=== PATIENT | male | born 1995 | race Caucasian/White ===

== ENCOUNTER 2018-01-14 18:58 | Emergency (ER) | payer BC ==
[~2018-01-14] VITALS: Ht 177.8 cm; Wt 84.2 kg
[~2018-01-14 18:58] MED LIST: ACET300T3 PO
[2018-01-14 19:01] VITALS: TEMP 36.7; Ht 177.8 cm; Wt 84.2 kg
[2018-01-14] MEDS ORDERED: LIDOCAINE 1% BUFFERED INJ 20 ML VIAL INFIL STA (19:13)
[2018-01-14] MEDS ORDERED: CEPHALEXIN 500MG HOME PACK 1 EA BTL PO STA (20:30)
[2018-01-14] MEDS ORDERED: CEPH500C PO (20:40)
--- NOTE | 2018-01-14 20:41 | EMERGENCY ROOM VISIT NOTE ---
ED Visit Note First contact with patient: 19:04 Chief Complaint: "Cut hand". History of Present Illness: This patient is a 22-year-old male who presents to the Emergency Department via private vehicle for evaluation of their left palm laceration. Patient sustained the laceration while preparing dinner, when he accidentally stabbed the palmar aspect of his left hand. They report a minimal amount of bleeding initially. They deny any numbness or tingling into the distal extremity. They report do report some decreased range of motion of the affected digit. They have tried nothing for the pain. Patient rates his current discomfort as a 8/10. Patient's Tetanus status is believed to be currently up-to -date. Medications: As noted below Allergies: Azithromycin PMH: No pertinent SHx: Patient lives locally ROS: All pertinent positive and negative review of systems are appropriately documented in the History of Present Illness. Physical Exam: VITAL SIGNS - Vital signs and nursing notes were reviewed. Stable. Afebrile. GENERAL -22-year-old male appearing his stated age who is in no acute distress. Communicates well with provider and answers questions appropriately. SKIN - There is a 1 cm long laceration noted palmar aspect of the patient's left hand just proximal to the left fourth digit. The edges gape apart with traction. No foreign bodies appreciated. Upon further examination there are no deep structures including vessel, tendon, or bony structures appreciated. There is no active bleeding noted. MUSCULOSKELETAL - Laceration as described above. Full range of motion noted. Unfortunately, the patient does have strength deficit with flexion of the right fourth digit against resistance. Concern raised for tendinous injury. NEUROLOGIC - Spinothalamic tract was found to be intact with ability to discriminate sharp versus dull sensation. No sensory defects of the dorsal column were appreciated utilizing light touch for evaluation. VASCULAR - Capillary refill was brisk. ED Course: Patient was seen and evaluated by myself. Risks and benefits of performing primary wound closure versus no repair were discussed with the patient who verbalizes understanding. Verbal consent was obtained prior to performing the procedure. 3 cc of 1% buffered lidocaine was used to perform local anesthetization of the palmar laceration. The wound was cleansed and prepped in the typical sterile fashion utilizing normal saline and Betadine. The wound was sterilely draped. Once proper anesthetization was established, the wound was further examined and demonstrated no deep involvement that was appreciable to my inspection however it appears that the wound tracks deeper than visibly appreciated therefore validating concern for tendinous injury. The wound was copiously irrigated with normal saline and Betadine. The wound was closed using 2 simple, 4-0 nylon sutures with the wound edges being well approximated. Patient tolerated the procedure well. No complications were met. The wound was cleansed and dressed with a Bacitracin dressing and clamshell to provide flexion persistence of the fourth and fifth digits. I discussed the case with the on-call orthopedic surgeon, Dr. Charlton. Patient is to call his office first thing tomorrow to schedule follow-up. Patient will be on Keflex for infection prophylaxis. Patient educated on worrisome symptoms for return visit to the Emergency Department. Patient discharged to home in good condition. In the evaluation and treatment of this patient, the following differential diagnoses were considered: Finger Fracture, Finger Dislocation, tendinous injury, laceration, finger Sprain , Finger Contusion, Jersey Finger, or Mallet Finger. Current/Historical Medications Scheduled Cephalexin Monohydrate (Keflex), 500 MG PO QID Allergies Coded Allergies: Azithromycin (Unverified Allergy, Unknown, 01/14/18) Vital Signs Date Time Temp Pulse Resp B/P (MAP) Pulse Ox O2 Delivery O2 Flow Rate FiO2 01/14/18 21:26 70 18 133/70 99 01/14/18 19:01 36.7 65 16 129/97 100 Room Air Medications Administered Medications (Trade) Dose Ordered Sig/Albino Route Start Time Stop Time Status Last Admin Dose Admin Cephalexin Monohydrate (Keflex 500MG Home Pack) 1 homepack NOW STAT PO 01/14/18 20:30 01/14/18 20:31 DC 01/14/18 21:03 1 HOMEPACK Departure Information Impression Primary Impression: Laceration Dispostion Home / Self-Care Condition GOOD Prescriptions Cephalexin Monohydrate (Keflex) 500 Mg Cap 500 MG PO QID for 6 Days, #24 CAP Prov: Jhonny Keys PA-C 01/14/18 Referrals Linsey FletcherDRamon (PCP) Deangelo Charlton M.D. Patient Instructions [facility] Additional Instructions Discharge Instructions: You have received 2 sutures on your hand. These sutures are NOT dissolvable and WILL need to be removed by a health care provider in 12 days (Unless directed by your orthopedic doctor, Dr. Charlton). You can return to the Emergency Department or contact your Primary Care Provider to have the sutures removed. Keflex 500 mg every 6 hours to prevent infection. Remainder sent to your pharmacy. Please wear the splint for comfort until you see orthopedic Proper wound care is essential for adequate wound healing and infection prevention. You can shower and clean the wound with soap and water. Do not scour over the wound, pat dry with a towel. Do not submerse the wound (i.e. bathe or dish wash) until the sutures have been removed. You can use an antibiotic ointment with a dressing over the wound for the next 3-4 days. After this time you may leave the wound dry and open to the air. If crust develops over the wound you can use a Q-tip to apply a 1:1 peroxide:water solution to clean the wound. Look for signs of infection of the wound including: increased pain, swelling, foul discharge, streaking, or increased temperature. If any of these are noticed you should return to the Emergency Department for further assessment and treatment. As with any laceration you may have received nerve damage to the surrounding tissues. This damage may or may not be permanent. You should keep the area covered with sunscreen for the first 6 months to 1 year when at risk for exposure to help minimize scarring. You can also use scar reducing creams or Vitamin E oil to help minimize scarring. For pain control, you can use the following plrr-pzh-nyzyhav medicines (if >12 yo): - Regular strength (325mg/tab) Tylenol (acetaminophen) 2 tabs every 4-6 hours as needed. Do not exceed 12 tablets in a 24 hour period. Avoid taking more than 3 grams (3000 mg) of Tylenol per day. This includes any other sources of acetaminophen you may take on a regular basis. - Regular strength (200 mg/tab) Advil (ibuprofen) 1-2 tabs every 4-6 hours as needed. Do not exceed a dose of 3200 mg per day. Return to the emergency department if your symptoms worsen despite treatment course outlined above.
[2018-01-14 21:26] VITALS: BP 133/70; PULSE 70; O2SAT 99
[2018-01-16] MEDS ORDERED: HYDR-5688 PO (14:28)
== END 2018-01-14 21:02 | disposition home or self-care (01) ==
LOC: C.EDB 18:59 → C.EDD 21:02
DX: S61.412A Laceration without foreign body of left hand, initial encounter (principal); Z88.1 Allergy status to other antibiotic agents; W26.9XXA Contact with unspecified sharp object(s), initial encounter

== ENCOUNTER → 2018-01-15 | Outpatient (CLI) | payer BC ==
[~2018-01-15] MED LIST changes: -ACET300T3 PO; +CEPH500C PO; +HYDR-5688 PO
== END | disposition home or self-care (01) ==
LOC: C.RDSM 11:15
PROVIDERS: ATTEND Physical Medicine & Rehabilitation Sports Medicine
DX: M79.642 Pain in left hand (principal)

== ENCOUNTER → 2018-01-16 | Day surgery (SDC) | payer BC ==
[2018-01-15 16:08] VITALS: Ht 180.3 cm; Wt 86.4 kg
[~2018-01-16] VITALS: Ht 180.3 cm; Wt 86.4 kg
[~2018-01-16] MED LIST changes: +ATROPINE SULFATE 0.1 MG/ML 5ML SYR IV PRN; +BUPIVACAINE 0.5 % 5 MG/1 ML PF 10ML VIAL ONE; +CEFAZOLIN 2000MG IV PUSH 15 ML IV SCH; +DEXAMETHASONE SOD INJ 4 MG/ML VIAL ONE; +EpHEDrine SULFATE INJ 50 MG/ML AMP IV PRN; +FENTANYL CITRATE INJ 50 MCG/1 ML 2 ML VIAL IV PRN; +FENTANYL CITRATE INJ 50 MCG/1 ML 2 ML VIAL ONE; +HYDROmorphone INJ 1 MG/ML SYR IV PRN; +KETOROLAC TROMETHAMINE 30 MG/ML VIAL ONE; +LACTATED RINGER'S 1000ML 1,000 ML IV SCH; +LIDOCAINE HCL 1% 20 ML VIAL ONE; +LIDOCAINE HCL 2% 2 ML VIAL (20MG/ML) ONE; +MIDAZOLAM HCL 1 MG/ML 2ML VIAL ONE; +MoRPHine SULFATE 2 MG/ML CARP IV PRN; +MoRPHine SULFATE 4 MG/ML 1 ML CARP\\VIAL IV PRN; +ONDANSETRON INJ 2 MG/ML 2 ML VIAL IV PRN; +ONDANSETRON INJ 2 MG/ML 2 ML VIAL ONE; +OXYCODONE/ACETAMINOPHEN 5-325 TAB PO PRN; +PHENYLEPHRINE 100MCG/ML 5ML SYR IV PRN; +PROMETHAZINE HCL INJ 12.5 MG in SODIUM CHLORIDE 0.9% 50ML 50 ML IV PRN; +PROPOFOL IV EMULSION 10 MG/ML 20 ML VIAL ONE; +SODIUM CHLORIDE 0.9% 1000ML 1,000 ML IV SCH
--- NOTE | 2018-01-16 12:41 | History & Physical Bridge Note ---
H&P Re-Evaluation Bridge Note: I have examined the patient, reviewed the History & Physical and in the interval since the performance of the History & Physical I have noted the following changes of clinical significance: No changes noted
--- NOTE | 2018-01-16 14:04 | [facility] Post Operative Brief Note ---
Immediate Operative Summary Operative Date Jan 16, 2018. Pre-Operative Diagnosis Left ring finger flexor tendon laceration, zonne 3 Post-Operative Diagnosis Same as pre-op Procedure(s) Performed Left Hand Exploration And Left Ring Finger Tendon Repair Surgeon Cardiovascular Surgical Tech Surgeon(s) June SALAMANCA Estimated Blood Loss 20ML Findings Consistent with Post-Op Diagnosis Specimens None Drains None Anesthesia Type General Complication(s) none Disposition Accompanied Pt To Recover: no Disposition: Recovery Room / PACU
--- NOTE | 2018-01-16 14:32 | Discharge Instructions-SurgCtr ---
Discharge Instructions Date of Service Jan 16, 2018. Visit Reason for Visit: Left Ring Finger Flexor Tendon Laceration Discharge Discharge Diagnosis / Problem: Left ring finger flexor tendon laceration Discharge Goals Goal(s): Decrease discomfort, Improve function, Increase independence Activity Recommendations Activity Limitations: per Instructions/Follow-up section Weightbearing Status: Left non-weightbearing (left hand) Anesthesia . Post Anesthesia Instructions: If you have had General Anesthesia or IV Sedation: * Do not drive today. * Resume driving when surgeon permits. * Do not make important decisions or sign legal documents today. * Call surgeon for: 1. Temperature elevations greater than 101 degrees F. 2. Uncontrollable pain. 3. Excessive bleeding. 4. Persistent nausea and vomiting. 5. Medication intolerance (nausea, vomiting or rash). * For nausea and vomiting use only clear liquids such as: tea, soda, bouillon until nausea subsides, then gradually increase diet as tolerated. * If you have any concerns or questions, call your surgeon's office. If physician is unavailable and it is an emergency, call 911 or go to the nearest emergency room. . Instructions / Follow-Up Instructions / Follow-Up The following are instructions to follow after minor hand surgery. ACTIVITY RECOMMENDATIONS: * Minimize activity until your first visit after surgery. * No excessive walking, jogging, sports or laboring. * Return to activity is individualized. Most patients are able to return to everyday activities within 2 weeks. * Return to sports or intensive labor usually occurs at 1-2 months. * DRIVING: Driving may be resumed when you feel you have adequate pain control and use of the hand. * BATHING: You may shower or sponge-bathe immediately after surgery. The dressing will need to be covered with a plastic bag or plastic wrap until the dressing is changed on the fourth or fifth day after surgery. Once the dressing has been changed on the fourth or fifth day after surgery, you may shower and get the incision wet. * Wash with regular soap and water. * Do not bathe (submerge the incision), soak, swim or use a hot tub until the incision is completely healed over with normal skin and the doctor has given the OK to proceed. * There is no need to apply any ointments, powders or salves to your incision. * Do not apply alcohol or hydrogen peroxide directly to the incision. Diluted peroxide (50:50 mixture with sterile saline) may be used to clean dried blood from around the incision area. WORK/SCHOOL: * You may return to sedentary work or school when you are feeling comfortable. This is usually 3-7 days after surgery. * Expect increased discomfort with increased activity. Continue to elevate and ice the hand as much as possible. DIET: * Resume previous diet. MEDICATIONS: * You will have a prescription for pain medication and an anti-inflammatory medication after surgery. Use the pain pills for severe pain and the anti-inflammatory for less severe pain. * Once the pain pills have run out, try to use the anti-inflammatory. If this is not effective then contact the office for assistance. * The pain medication may cause nausea, constipation and sleepiness. You should see how they affect you before driving or similar activity. * The anti-inflammatory may cause stomach upset and bleeding. If this occurs, let your doctor know immediately . * Some patients may need blood clot prevention. This can be done with either a pill or a simple shot. Your doctor will advise you on when to begin these medications and how to take them. * Do not take aspirin or other anti-inflammatory products (i.e. Advil or Aleve ) if taking blood thinner medication. * Take a stool softener like Colace or a stimulant like Senokot to prevent constipation. SPECIAL CARE INSTRUCTIONS: ICE: * Do not apply ice directly to the skin. * Use a thin dressing or stockinet between the skin and ice bag. The dressing in place after surgery will suffice. * Apply ice for 20-30 minutes and repeat every 2-4 hours. This is especially important for the first 3-7 days after surgery. * Once the pain improves, use ice as needed. ELEVATION: * Keep your hand elevated at or above the level of your heart as much as possible. * Expect some increased discomfort and swelling if you allow your hand to hang down for any length of time. DRESSING: * Your dressing will be changed 4-5 days after surgery by the physical therapist or physician's assistant bookkeeper. Leave your dressing intact until this time. * Keep splint on at all times until your physical therapy appointment. * Always wash your hands prior to touching the incision area. * Once the stitches are removed, you may leave the wound open to air or cover with a thin bandage. * There is no need to apply any ointments, powders or salves to your incision. * Expect some bloody drainage for the first few days after surgery. * Leave the tape strips in place (if present) for 5-7 days. * The initial dressing after surgery may become soaked with blood or fluid which is normal. You may reinforce your dressing with clean, dry gauze as needed. BRACE: * Bracing may be needed after your surgery. This will happen at your physical therapy appointment if necessary. THERAPY: * Physical therapy may be prescribed after your surgery. * For carpal tunnel and trigger digit surgery you may begin moving your fingers and wrist immediately after surgery as tolerated. * Be careful to not overuse. * Once the sutures are removed, further range of motion exercises can be performed. * Hand incisions may be very sensitive for a few months after surgery so avoid excessive pressure on the incision. If necessary, use a padded weightlifters' glove. * You may massage the incision with skin cream to make it less sensitive and reduce scarring. * Hand strength usually returns with normal use. * If needed, squeezing a soft sponge or Play-dough may help. * Your doctor will recommend physical therapy if necessary. PROBLEMS/QUESTIONS: * If you have any problems such as severe pain, numbness, tingling or high fevers or if you have any questions, please contact the office at [phone]. * It is not uncommon to have some numbness and tingling after the surgery especially if you have had a nerve block done. This should gradually improve over the first 1- 2 days. If this persists longer or worsens then contact the office. FOLLOW UP VISIT: * If not already scheduled, please call the office at to schedule follow-up appointments for approximately 10 days, 6 weeks and 3 months after surgery. * You have a scheduled physical therapy appointment on Saturday. * You have a follow up scheduled with Dr. Charlton on 01/29/18 at 1:15 pm Diet Recommendations Home Diet: no limitations, resume previous diet Procedures Procedures Performed: Left Hand Exploration And Left Ring Finger Tendon Repair Pending Studies Studies pending at discharge: no Medical Emergencies . Who to Call and When: Medical Emergencies: If at any time you feel your situation is an emergency, please call 911 immediately. . Non-Emergent Contact Non-Emergency issues call your: Surgeon Call Non-Emergent contact if: temperature is above 101, your pain is not controlled, your pain is worsening, your pain is unusual for you, your pain is concerning you, wound has increased drainage, wound has increased redness, wound has increased pain, you have any medication questions . . "Provider Documentation" section prepared by Roz Alves. . [place] Drug Monitoring Program Search Results: patient reviewed within database, no issues identified
--- NOTE | 2018-01-16 14:36 | [facility] Operative Report ---
Operative Report Operative Date Jan 16, 2018. Pre-Operative Diagnosis Left ring finger flexor tendon laceration, zonne 3 Post-Operative Diagnosis Same as pre-op Procedure(s) Performed Left Hand Exploration And Left Ring Finger Tendon Repair Surgeon Chief Science Officer Surgeon(s) June SALAMANCA Estimated Blood Loss 20ML Findings left ring finger flexor tendon rupture Specimens None Drains None Anesthesia Type General Complication(s) none Disposition no Recovery Room / PACU Indications Patient is s/p stabbing his left hand while cooking on Saturday. He was seen in the ED, concern for flexor tendon. Referred to orthopaedics. X-rays negative for fracture or opaque foreign body. Seen and evaluated by Dr. Charlton, surgical exploration and repair recommended. He agreed to proceed with surgery. Risks/complications discussed, informed consent obtained. Description of Procedure Patient was taken to the operating room, given IV Ancef for surgical prophylaxis. Time out performed, prepped and draped in routine sterile fashion. I was present during the entire case, please see Dr. Charlton's operative report for further detail. Patient was awakened and taken to the recovery room in stable condition. I attest to the content of the Intraoperative Record and any orders documented therein. Any exceptions are noted below.
--- NOTE | 2018-01-16 14:56 | [facility] Operative Report ---
Operative Report Operative Date Jan 16, 2018. Pre-Operative Diagnosis Left ring finger flexor tendon laceration, zone 3 Post-Operative Diagnosis Same as pre-op Procedure(s) Performed Left Hand Exploration And Left Ring Finger Tendon Repair Surgeon Hogshead Roller Surgeon(s) June SALAMANCA Estimated Blood Loss 20ML Findings Completely lacerated superficialis flexor tendon in zone 3 for the left ring finger Specimens None Anesthesia General Complication(s) None Disposition Recovery Room / PACU Indications Informed consent obtained. Patient identified. I marked the operative site with my initials. Preop surgical timeout performed. Preop dose of IV antibiotics given. He was positioned supine on the OR table with a tourniquet on the left arm. The left arm was placed on a hand table. The limb was prepped and draped in usual sterile fashion. The examination under anesthesia was unremarkable. The preop examination showed difficulty/inability to flex the PIP joint of the left ring finger otherwise all the profundus and superficialis tendons were intact. DVT prophylaxis was not indicated. The arm was prepped and draped in usual sterile fashion. The sutures were removed and passed off with the instruments. The incision was marked out which was a carpal tunnel's incision with a zigzag ulnarly including the 1 cm transverse laceration which was distal to Gordillo's cardinal line. This then coursed obliquely to the distal palmar crease over the fourth ray. I opened up the distal part of the incision first. I identified the superficial palmar arch. I then dissected distal to it and identified the flexor tendons. These were the flexor tendons of the fourth ray. Hemorrhage was noted. Dissecting through the tenosynovium revealed the cut distal end of the superficialis tendon. The profundus tendon was intact. I then went ahead and extended the incision proximally and performed a release of the transverse carpal ligament except for some proximal fibers. The superficial palmar arch was identified. I dissected out the underneath it. I was unable to identify the proximal cut tendon and retrieved it distally using a tendon retriever. I then sequentially went and identified all the superficialis and profundus tendons to the other fingers which were intact. The tendon was retracted deep to the superficial arch and superficial to the profundus and kept in the proper orientation. Hemorrhagic tenosynovium was excised. 2 modified Dominguez stitches were placed into each tendon 1 dorsally 1 volarly. This was done with 4-0 FiberWire. This resulted in a 4 strand repair. These were then tied 8 without tension and revealed a good reapproximation of the tendon. I then used a 6-0 Prolene to oversew this in a running running reverse lock suture. Tourniquet let down for 45 minutes of inflation reticulate hemostasis was performed. Betadine lavage and regular irrigation was performed. The skin was injected and carpal tunnel injected with 1% lidocaine and 0.5% Marcaine. The skin was then closed loosely over the laceration with this interrupted stitch. The remainder was closed with corner stitches and 4-0 nylon horizontal mattress stitches. The arm was cleaned with wet and dry sponges. Care was taken during the repair to flex the finger and the wrist. A splint was then applied with the wrist in 20 flexion the fingers and about 50% flexion a dorsal slab splint and a volar splint. Patient is awake from anesthesia without difficulty taken to recovery in stable condition. There were no specimens or complications. Counts were correct in the case. Blood loss was 20 cc. At the conclusion of the operation spoke patient's family informed of my findings and gave detailed postoperative instructions. He will be rehabilitated according to the zone 3 rehab protocol. I attest to the content of the Intraoperative Record and any orders documented therein. Any exceptions are noted below.
--- NOTE | 2018-01-16 15:24 | Anesthesia Progress Nt - [facility] ---
Anesthesia Post Op Note Date & Time Jan 16, 2018 at 15:24 Vital Signs Pain Intensity: 3 Vital Signs Past 12 Hours Date Time Temp Pulse Resp B/P (MAP) Pulse Ox O2 Delivery O2 Flow Rate FiO2 01/16/18 15:21 125/75 01/16/18 15:17 55 12 01/16/18 15:17 56 12 100 01/16/18 15:16 36.7 67 15 125/75 100 Room Air 01/16/18 15:16 135/83 01/16/18 15:12 78 12 01/16/18 15:12 78 12 98 01/16/18 15:11 128/93 01/16/18 15:09 131/85 01/16/18 15:07 79 15 01/16/18 15:07 79 15 100 01/16/18 15:06 146/93 01/16/18 15:02 72 15 01/16/18 15:02 72 15 100 01/16/18 15:01 126/87 01/16/18 14:57 55 18 100 01/16/18 14:57 54 18 01/16/18 14:56 142/79 01/16/18 14:52 54 14 100 01/16/18 14:52 54 14 01/16/18 14:51 121/65 01/16/18 14:47 52 11 01/16/18 14:47 52 11 100 01/16/18 14:46 122/66 01/16/18 14:42 55 15 01/16/18 14:42 55 15 100 01/16/18 14:41 121/71 01/16/18 14:37 55 14 100 01/16/18 14:37 55 14 01/16/18 14:36 120/71 01/16/18 14:33 132/77 01/16/18 14:32 36.7 77 16 122/66 100 Mask 6 01/16/18 11:43 36.2 66 18 118/71 (87) 99 Room Air Notes Mental Status: alert / awake / arousable, participated in evaluation Pt Amnestic to Procedure: Yes Nausea / Vomiting: adequately controlled Pain: adequately controlled Airway Patency, RR, SpO2: stable & adequate BP & HR: stable & adequate Hydration State: stable & adequate Anesthetic Complications: no major complications apparent
[2018-01-16 15:43] VITALS: TEMP 36.6
[2018-01-16 16:08] VITALS: BP 124/76; PULSE 54; O2SAT 97
== END | disposition home or self-care (01) ==
LOC: X.SURG 11:34
PROVIDERS: ATTEND Physical Medicine & Rehabilitation Sports Medicine
DX: S66.125A Laceration of flexor muscle, fascia and tendon of left ring finger at wrist and hand level, initial encounter (principal); X58.XXXA Exposure to other specified factors, initial encounter; Y93.G1 Activity, food preparation and clean up; Z88.1 Allergy status to other antibiotic agents